=== PATIENT | female | born 1965 | race Caucasian/White ===

== ENCOUNTER → 2017-06-19 | Outpatient (CLI) | payer OTHER | END | disposition home or self-care (01) | LOC: MAMMO 16:08 | PROVIDERS: ATTEND Family Medicine | DX: Z12.31 Encounter for screening mammogram for malignant neoplasm of breast (principal) ==

== ENCOUNTER → 2020-05-26 | Outpatient (CLI) | payer OTHER ==
--- NOTE | 2020-05-30 15:29 | MAM ---
EXAM DESCRIPTION: 3D Screening BILATERAL : Digital Mammography. CLINICAL HISTORY: 54 years Female ANNUAL SCREENING . No complaints and no family history breast cancer. Menarche age 12. Childbirth age 29. Menopause age 39. HRT 5 or more years ago. Lifetime risk of developing breast cancer (Tyrer-Cuzick model)(%): 10.0. COMPARISON: 2-D digital screening bilateral mammography May 2017. TECHNIQUE: Bilateral CC and MLO projection full-field images, digital tomosynthesis mammographic technique. Bilateral digital 2-D full-field MLO images. CAD available for 2-D images. FINDINGS: The breast parenchymal density pattern is: Scattered areas of fibroglandular density. No skin thickening or nipple retraction. Solitary microcalcifications. Left axillary lymph node. No new focal, stellate mass or density, focal asymmetry , and no suspicious microcalcifications bilaterally. Stable mammograms compared to prior study. Taking into account, differences in mammographic technique. IMPRESSION: Benign exam. BIRAD CATEGORY: 2 BENIGN FINDINGS. RECOMMENDATIONS: FOLLOW UP: Routine digital bilateral mammographic screening, one year interval from May 2020. Written communication explaining the IMPRESSION and follow-up, will be mailed to the patient and referring health care provider. According to the [employer], yearly mammograms are recommended starting at age 40 and continuing as long as a woman is in good health. Any breast change noted on a breast self-exam should be reported promptly to the patient's healthcare provider. Breast MRI is recommended for women with an approximately 20-25% or greater lifetime risk of breast cancer, including women with a strong family history of breast or ovarian cancer and women who have been treated for Hodgkin's disease. A negative mammographic report should not delay tissue diagnosis in patients with significant clinical history or physical findings. Extremely dense breast tissue limits the sensitivity of digital mammography. Electronically signed by: Adriano Meier MD 05/30/2020 3:28 PM CDT
== END ==
LOC: MAMMO 11:06
PROVIDERS: ATTEND Family Medicine
DX: Z12.31 Encounter for screening mammogram for malignant neoplasm of breast (principal)

== ENCOUNTER → 2020-09-12 | Outpatient (CLI) | payer OTHER ==
--- NOTE | 2020-09-12 15:26 | US ---
THYROID ULTRASOUND CLINICAL INFORMATION: Graves' disease TECHNIQUE: Thyroid sonography was performed. COMPARISON: None FINDINGS: Thyroid size: The right thyroid lobe measures 4.6 x 2.1 x 2.1 cm. Left thyroid lobe measures 4.2 x 2.1 x 1.9 cm. The thyroid isthmus measures 3.8 mm in thickness. Texture: Heterogeneous texture with decreased echogenicity consistent with chronic thyroiditis or atypical Graves' disease. In the lower posterior aspect of the right thyroid lobe a questionable hypoechoic area is measured as a nodule 1 cm in greatest dimension. This is hypoechoic with long axis parallel to the skin, TR4. Annual follow-up is recommended (see below). Ill-defined hypoechoic area in the posterior inferior left thyroid lobe is measured as if it were a nodule but this is simply an ill-defined hypoechoic areas part of the generalized inhomogeneity. IMPRESSION: Inhomogeneous thyroid gland consistent with the clinical history of Graves' disease. Hypoechoic focus in the posterior inferior right thyroid lobe may represent a nodule 1 cm (TR4). Annual follow-up for five years as per recommendations below. ACR TI-RADS recommendations: TR5 (>/=7 points) - FNA if >/=1 cm, follow-up if 0.5 - 0.9 cm every year for 5 years TR4 (4-6 points) - FNA if >/=1.5 cm, follow-up if 1 - 1.4 cm in 1, 2, 3 and 5 years TR3 (3 points) - FNA if >/=2.5 cm, follow -up if 1.5 - 2.4 cm in 1, 3 and 5 years TR2 (2 points) and TR1 (0 points) - No FNA or follow-up * ACR TI-RADS recommends that no more than two nodules with the highest ACR TI-RADS total point should be biopsied and no more than four nodules should be followed. Electronically signed by: Aries Reyes MD 09/12/2020 3:25 PM [facility]
== END ==
LOC: US 09:59
PROVIDERS: ATTEND Internal Medicine Endocrinology, Diabetes & Metabolism
DX: E05.00 Thyrotoxicosis with diffuse goiter without thyrotoxic crisis or storm (principal); E04.9 Nontoxic goiter, unspecified; Z83.49 Family history of other endocrine, nutritional and metabolic diseases